=== PATIENT | female | born 1960 | race Hispanic/Latino ===

== ENCOUNTER 2017-02-23 16:51 | Emergency (ER) | payer MEDICAID ==
[2017-02-23 17:38] VITALS: RESP 18
--- NOTE | 2017-02-23 18:16 | C.PDOC ---
History Of Present Illness A 56 year old female presents to the emergency room with complaints of a sore throat and cough for the last 3 days. Notes she vomited 3 days ago, but none since. No SOB, chest pain. Patient denies any fever, dizziness, abdominal pain, or any other complaints. Time Seen by Provider: 02/23/17 17:39 Chief Complaint (Nursing): ENT Problem History Per: Patient History/Exam Limitations: no limitations Onset/Duration Of Symptoms: Days (3) Current Symptoms Are (Timing): Still Present Severity: Mild Recent travel outside of the [place]: No Past Medical History Reviewed: Historical Data, Nursing Documentation, Vital Signs Vital Signs: Last Vital Signs Temp 97.9 F 02/23/17 19:22 Pulse 66 02/23/17 19:22 Resp 18 02/23/17 19:22 BP 117/84 02/23/17 19:22 Pulse Ox 95 02/23/17 20:39 - Medical History PMH: Anxiety, Bipolar Disorder, Depression, HTN Denies: Chronic Kidney Disease - [facility] Procedures REMOV INTRALUM EAR FB (03/08/13) Family History: States: Unknown Family Hx - Social History Hx Tobacco Use: No Hx Alcohol Use: No Hx Substance Use: No - Immunization History Hx Tetanus Toxoid Vaccination: No Hx Influenza Vaccination: No Hx Pneumococcal Vaccination: No Review Of Systems Except As Marked, All Systems Reviewed And Found Negative. Constitutional: Negative for: Fever, Chills ENT: Positive for: Throat Pain (Sore throat) Respiratory: Positive for: Cough. Negative for: Shortness of Breath Gastrointestinal: Negative for: Nausea, Vomiting, Abdominal Pain, Diarrhea Neurological: Negative for: Headache, Dizziness Physical Exam - Physical Exam Appears: Non-toxic, No Acute Distress Skin: Normal Color, Warm, Dry, No Rash Head: Atraumatic, Normacephalic Eye(s): bilateral: Normal Inspection, PERRL, EOMI Ear(s): Bilateral: Normal Nose: Normal, No Discharge Oral Mucosa: Moist Throat: Normal, No Erythema, No Exudate Neck: Normal ROM, No Midline Cervical Tenderness, No Paracervical Tenderness, Supple Lymphatic: Normal Exam, No Adenopathy Chest: Symmetrical Cardiovascular: Rhythm Regular Respiratory: Normal Breath Sounds, No Rales, No Rhonchi, No Wheezing Back: No CVA Tenderness, No Vertebral Tenderness Extremity: Normal ROM, No Tenderness Neurological/Psych: Oriented x3, Normal Speech ED Course And Treatment O2 Sat by Pulse Oximetry: 95 - Radiology CXR: Interpreted by Me, Viewed By Me CXR Interpretation: Yes: No Acute Disease Progress Note: CXR was negative. Patient was given prescription for Motrin and mouth wash. Patient is in no acute distress, afebrile, and denies any pain, sensory changes, headaches, or dizziness. Discussed symptomatic treatment. Patient feels comfortable being discharged home. Instructed to follow up with PMD within 1-2 days. Disposition - Disposition Disposition: HOME/ ROUTINE Disposition Time: 18:54 Condition: STABLE Additional Instructions: Follow up with your primary medical doctor or clinic in 2-5 days for further evaluation. Take medications as prescribed. Return to the emergency department at any time if symptoms persist or worsen. Prescriptions: Ibuprofen [Motrin] 400 mg PO Q6 PRN #20 tab PRN Reason: Fever Mag&Al/Simet/Diphen/Lido [First Magic Mouthwash] 5 ml MM Q6 #1 kit Instructions: Upper Respiratory Infection (ED) - Clinical Impression Clinical Impression: URI (upper respiratory infection) - Scribe Statement The provider has reviewed the documentation as recorded by the Scribe Vincent Hernandez All medical record entries made by the Scribe were at my direction and personally dictated by me. I have reviewed the chart and agree that the record accurately reflects my personal performance of the history, physical exam, medical decision making, and the department course for this patient. I have also personally directed, reviewed, and agree with the discharge instructions and disposition.
[2017-02-23 19:23] VITALS: BP 117/84; PULSE 66; TEMP 97.9
[2017-02-23 20:37] VITALS: O2SAT 95
--- NOTE | 2017-02-24 08:46 | RAD ---
HISTORY: cough COMPARISON: No prior. TECHNIQUE: Chest PA and lateral FINDINGS: LUNGS: No active pulmonary disease. Bibasilar breast and nipple shadows. PLEURA: No significant pleural effusion identified. No pneumothorax apparent. CARDIOVASCULAR: Normal. OSSEOUS STRUCTURES: No significant abnormalities. VISUALIZED UPPER ABDOMEN: Normal. OTHER FINDINGS: None. IMPRESSION: No active disease.
== END 2017-02-23 19:34 | disposition home or self-care (01) ==
LOC: C.ER 16:51
DX: J06.9 Acute upper respiratory infection, unspecified (principal)

== ENCOUNTER 2017-03-11 17:23 | Emergency (ER) | payer MEDICAID ==
[2017-03-11 17:32] VITALS: RESP 18
[2017-03-11 19:01] LABS: BASO % 0.4 % (0.0-2.0); EOS # 0.1 K/uL (0.0-0.7); HEMATOCRIT 37.2 % (34.0-47.0); LYMPH # 1.7 K/uL (1.0-4.3); LYMPH % 24.1 % (20.0-40.0); MEAN CELL VOLUME 89.9 fL (81.0-99.0); MEAN CORPUSCULAR HEMOGLOBIN 28.9 pg (27.0-31.0); MEAN CORPUSCULAR HGB CONC 32.1 g/dL (33.0-37.0); MEAN PLATELET VOLUME 9.2 fL (7.2-11.7); MONO # 0.6 K/uL (0.0-0.8); MONO % 8.2 % (0.0-10.0); RED CELL DISTRIBUTION WIDTH 13.9 % (11.5-14.5); WHITE BLOOD COUNT 6.9 K/uL (4.8-10.8)
[2017-03-11 19:06] LABS: CHLORIDE 99 mmol/L (98-107); POTASSIUM 3.1 mmol/L (3.6-5.2); SODIUM 141 mmol/L (132-148)
[2017-03-11 19:08] LABS: BILIRUBIN,TOTAL 0.6 mg/dL (0.2-1.3); GFR AFRICAN-AMERICAN > 60
[2017-03-11 19:09] LABS: ALB/GLOB RATIO 1.3 (1.0-2.1); ALKALINE PHOSPHATASE 88 U/L (38-126); ALT/SGPT 30 U/L (9-52); AST/SGOT 36 U/L (14-36); BLOOD UREA NITROGEN 17 mg/dL (7-17); CARBON DIOXIDE 32 mmol/L (22-30); GLUCOSE,RANDOM 88 mg/dL (65-105); TOTAL PROTEIN 7.3 g/dL (6.3-8.3)
[2017-03-11 19:10] LABS: CALCIUM 9.1 mg/dl (8.6-10.4)
--- NOTE | 2017-03-11 19:22 | C.PDOC ---
History Of Present Illness 56 y/o female presents to the ED with complains of area of bruising over left thigh the past 2-3 days. Pt describes the area as "mildly tender. " Pt denies trauma, recent travel or history of anticoagulopathy. Denies fever. Time Seen by Provider: 03/11/17 17:48 Chief Complaint (Nursing): Abnormal Skin Integrity History Per: Patient History/Exam Limitations: no limitations Onset/Duration Of Symptoms: Days Current Symptoms Are (Timing): Still Present Severity: Mild Recent travel outside of the [place]: No Past Medical History Reviewed: Historical Data, Nursing Documentation, Vital Signs Vital Signs: Last Vital Signs Temp 982 F H 03/11/17 19:54 Pulse 68 03/11/17 19:54 Resp 18 03/11/17 19:54 BP 107/65 03/11/17 19:54 Pulse Ox 98 03/11/17 19:54 - Medical History PMH: Anxiety, Bipolar Disorder, Depression, HTN - [facility] Procedures REMOV INTRALUM EAR FB (03/08/13) Family History: States: Unknown Family Hx - Social History Hx Tobacco Use: No Hx Alcohol Use: No Hx Substance Use: No - Immunization History Hx Tetanus Toxoid Vaccination: No Hx Influenza Vaccination: No Hx Pneumococcal Vaccination: No Review Of Systems Except As Marked, All Systems Reviewed And Found Negative. Constitutional: Negative for: Fever Skin: Positive for: Bruising (left thigh) Physical Exam - Physical Exam Appears: Non-toxic, No Acute Distress Skin: Warm, Dry, Ecchymosis (10x10 cm area to proximal medial left thigh; nontender, no swelling), Other (No petechiae) Head: Atraumatic, Normacephalic Eye(s): bilateral: Normal Inspection, PERRL, EOMI Ear(s): Bilateral: Normal Nose: Normal Oral Mucosa: Moist, Other (no petechiae or lesions) Throat: Normal, No Erythema Neck: Normal, Normal ROM, Supple Chest: Symmetrical Cardiovascular: Rhythm Regular, No Friction Rub, No Murmur Respiratory: Normal Breath Sounds, No Rales, No Rhonchi, No Wheezing Gastrointestinal/Abdominal: Normal Exam, Soft, No Tenderness Extremity: Normal ROM, No Tenderness, No Swelling Extremity: Bilateral: Atraumatic Pulses: Left Dorsalis Pedis: Normal, Right Dorsalis Pedis: Normal Neurological/Psych: Oriented x3, Normal Speech, Normal Motor, Normal Sensation Gait: Steady ED Course And Treatment - Laboratory Results Result Diagrams: 03/11/17 18:38 03/11/17 18:38 O2 Sat by Pulse Oximetry: 100 (room air) Pulse Ox Interpretation: Normal Medical Decision Making Medical Decision Making: labs are normal. DVT was ruled out as D-dimer is negative. Disposition - Disposition Referrals: Benji Rico MD [Medical Doctor] - Disposition: HOME/ ROUTINE Disposition Time: 19:30 Condition: GOOD Additional Instructions: Follow up with the medical doctor within 1-2 days. Return if worsened. Prescriptions: Naproxen [Naprosyn] 500 mg PO BID #20 tab Instructions: Contusion in Adults (ED) - Clinical Impression Clinical Impression: Ecchymosis - PA / ARCHITECTURAL ASSOCIATE / Resident Statement MD/DO has reviewed & agrees with the documentation as recorded. - Scribe Statement The provider has reviewed the documentation as recorded by the Scribmorteza Bliss All medical record entries made by the Scribe were at my direction and personally dictated by me. I have reviewed the chart and agree that the record accurately reflects my personal performance of the history, physical exam, medical decision making, and the department course for this patient. I have also personally directed, reviewed, and agree with the discharge instructions and disposition.
[2017-03-11 19:54] VITALS: BP 107/65; PULSE 68; TEMP 982
[2017-03-11 23:31] VITALS: O2SAT 100
== END 2017-03-11 19:59 | disposition home or self-care (01) ==
LOC: C.ER 17:23
DX: S70.12XA Contusion of left thigh, initial encounter (principal); X58.XXXA Exposure to other specified factors, initial encounter; Y93.89 Activity, other specified; Y92.89 Other specified places as the place of occurrence of the external cause

== ENCOUNTER 2017-06-02 12:50 | Emergency (ER) | payer MEDICAID ==
[2017-06-02 13:05] VITALS: BP 116/71; PULSE 71; RESP 18; TEMP 97.9; O2SAT 100
--- NOTE | 2017-06-02 13:48 | C.PDOC ---
History Of Present Illness 56 year old female presents to the ED with complaints of intermittent bilateral hand pain for three weeks, worsen in the right hand. 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 She denies fever, swelling , or numbness. Time Seen by Provider: 06/02/17 13:18 Chief Complaint (Nursing): Upper Extremity Problem/Injury History Per: Patient History/Exam Limitations: no limitations Onset/Duration Of Symptoms: Days (3 weeks ), Intermittent Episodes Current Symptoms Are (Timing): Still Present Quality: "Pain" Exacerbating Factor(s): Movement Recent travel outside of the [place]: No Past Medical History Reviewed: Historical Data, Nursing Documentation, Vital Signs Vital Signs: Last Vital Signs Temp 97.9 F 06/02/17 13:02 Pulse 71 06/02/17 13:02 Resp 18 06/02/17 13:02 BP 116/71 06/02/17 13:02 Pulse Ox 100 06/02/17 14:06 - Medical History PMH: Anxiety, Bipolar Disorder, Depression, HTN - [facility] Procedures REMOV INTRALUM EAR FB (03/08/13) Family History: States: Other Other Family History: Non-contributory - Social History Hx Tobacco Use: No Hx Alcohol Use: No Hx Substance Use: No - Immunization History Hx Tetanus Toxoid Vaccination: No Hx Influenza Vaccination: No Hx Pneumococcal Vaccination: No Review Of Systems Constitutional: Negative for: Fever, Chills Cardiovascular: Negative for: Chest Pain Respiratory: Negative for: Shortness of Breath Gastrointestinal: Negative for: Nausea, Vomiting Musculoskeletal: Positive for: Hand Pain (bilateral hand pain ) Neurological: Negative for: Weakness, Numbness Physical Exam - Physical Exam Appears: Non-toxic, No Acute Distress Skin: Warm, Dry Head: Atraumatic Eye(s): bilateral: Normal Inspection, EOMI Chest: Symmetrical, No Deformity Cardiovascular: Rhythm Regular Extremity: Normal ROM, No Tenderness, No Pedal Edema, No Calf Tenderness, Capillary Refill (good capillary refill, less than two seconds ), No Deformity, No Swelling Neurological/Psych: Oriented x3, Normal Speech, Normal Cognition, Normal Motor, Normal Sensation ED Course And Treatment O2 Sat by Pulse Oximetry: 100 (room air ) - Other Rad Bilateral Hand X-Ray X-Ray: Viewed By Me, Read By Radiologist Interpretation: IMPRESSION: Neutral right ulnar variance; minimal positive left ulnar variance. A fracture or dislocation. No erosion. Minimal arthrosis Progress Note: Left and right hand X-Rays were taken. Patient was given Toradol. Medical Decision Making Medical Decision Making: xr juana hands- no acute fracture Disposition - Disposition Referrals: [facility] [Outside] Disposition: HOME/ ROUTINE Disposition Time: 14:06 Condition: GOOD Additional Instructions: Please follow up with a primary doctor. Return to the ER for any worsening symptoms or for any other concerns. Prescriptions: Naproxen [Naprosyn] 500 mg PO Q12H PRN #10 tablet PRN Reason: Pain, Moderate (4-7) Forms: [facility] ([place]i), General Discharge Instructions - Clinical Impression Clinical Impression: Bilateral hand pain - Scribe Statement The provider has reviewed the documentation as recorded by the Scribe Sammi Alvarado All medical record entries made by the Scribe were at my direction and personally dictated by me. I have reviewed the chart and agree that the record accurately reflects my personal performance of the history, physical exam, medical decision making, and the department course for this patient. I have also personally directed, reviewed, and agree with the discharge instructions and disposition.
--- NOTE | 2017-06-02 14:52 | RAD ---
PROCEDURE: Bilateral hand radiographs. HISTORY: pain in both hands COMPARISON: None. FINDINGS: BONES: Right Hand: Minimal midcarpal row radial sided osteoarthritic changes. Left Hand: Minimal mid carpal row radial sided and radial carpal osteoarthritic changes. JOINTS: Right Hand: Normal. Left Hand: 1 mm ossification ossification ulnar carpal joint level SOFT TISSUES: Right Hand: Normal. Left Hand: Normal. OTHER FINDINGS: No erosions seen IMPRESSION: Neutral right ulnar variance; minimal positive left ulnar variance A fracture or dislocation. No erosion Minimal arthrosis
== END 2017-06-02 14:10 | disposition home or self-care (01) ==
LOC: C.ER 12:50
DX: M79.642 Pain in left hand (principal); M79.641 Pain in right hand
CPT/HCPCS: 73130; 96372; 99283; J1885

== ENCOUNTER 2018-01-06 11:01 | Emergency (ER) | payer MEDICAID ==
[2018-01-06 11:30] VITALS: BP 124/73; PULSE 90; RESP 20; TEMP 97.8; O2SAT 100
--- NOTE | 2018-01-06 12:33 | RAD ---
PROCEDURE: Radiographs of the Right Shoulder HISTORY: pain COMPARISON: No prior. FINDINGS: BONES: No acute fracture. JOINTS: Unremarkable. SOFT TISSUES: Normal. OTHER FINDINGS: None. IMPRESSION: No demonstrated fracture or dislocation.
--- NOTE | 2018-01-06 12:37 | C.PDOC ---
History Of Present Illness 57 year old female presents to the ED c/o right shoulder pain for the past month. Patient notes the pain mainly occurs with certain movements of her arm and when its hyperextended. Patient is right hand dominant. 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 Patient denies trauma, injury, fall, pain radiation, CP, SOB, changes in sensation. Time Seen by Provider: 01/06/18 11:57 Chief Complaint (Nursing): Upper Extremity Problem/Injury History Per: Patient History/Exam Limitations: no limitations Onset/Duration Of Symptoms: Days Current Symptoms Are (Timing): Still Present Quality: "Pain" Exacerbating Factor(s): Movement Recent travel outside of the [place]: No Additional History Per: Patient Past Medical History Reviewed: Historical Data, Nursing Documentation, Vital Signs Vital Signs: Last Vital Signs Temp 97.8 F 01/06/18 11:26 Pulse 90 01/06/18 11:26 Resp 20 01/06/18 11:26 BP 124/73 01/06/18 11:26 Pulse Ox 100 01/06/18 13:43 - Medical History PMH: Anxiety, Bipolar Disorder, Depression, HTN Denies: Chronic Kidney Disease Surgical History: No Surg Hx - [facility] Procedures REMOV INTRALUM EAR FB (03/08/13) Family History: States: Unknown Family Hx - Social History Hx Tobacco Use: No Hx Alcohol Use: No Hx Substance Use: No - Immunization History Hx Tetanus Toxoid Vaccination: No Hx Influenza Vaccination: No Hx Pneumococcal Vaccination: No Review Of Systems Constitutional: Negative for: Fever, Chills Cardiovascular: Negative for: Chest Pain Respiratory: Negative for: Shortness of Breath Musculoskeletal: Positive for: Shoulder Pain (right) Skin: Negative for: Rash Neurological: Negative for: Weakness, Numbness Physical Exam - Physical Exam Appears: Non-toxic, No Acute Distress Skin: Normal Color, Warm, Dry Head: Atraumatic, Normacephalic Eye(s): bilateral: Normal Inspection, EOMI Nose: Normal, No Discharge Oral Mucosa: Moist Neck: Normal ROM, Supple Chest: Symmetrical Respiratory: No Accessory Muscle Use Extremity: Normal ROM (Pain elicited with abduction at 180 degrees), No Tenderness, Capillary Refill (< 2 seconds), No Swelling Pulses: Left Radial: Normal, Right Radial: Normal Neurological/Psych: Oriented x3, Normal Motor, Normal Sensation Gait: Steady ED Course And Treatment O2 Sat by Pulse Oximetry: 100 (On RA) Pulse Ox Interpretation: Normal - Other Rad Right shoulder X-Ray X-Ray: Viewed By Me, Read By Radiologist Interpretation: PROCEDURE: Radiographs of the Right Shoulder. HISTORY: pain. COMPARISON: No prior. FINDINGS: BONES: No acute fracture. JOINTS: Unremarkable. SOFT TISSUES: Normal. OTHER FINDINGS: None. IMPRESSION: No demonstrated fracture or dislocation. Progress Note: Plan: - Right shoulder X-Ray. Pt refused pain medication. On reassessment, patient is resting comfortably, and is in no acute distress. Patient was instructed to follow up with physician/clinic in 1-2 days for further evaluation. Disposition - Disposition Referrals: Terrell Hopper III, MD [Staff Provider] - Disposition: HOME/ ROUTINE Disposition Time: 12:35 Condition: STABLE Additional Instructions: Follow up with your primary medical doctor or clinic in 2-5 days for further evaluation. Take medications as prescribed. Return to the emergency department at any time if symptoms persist or worsen. Instructions: Shoulder Sprain (DC) Forms: [facility] (Swazi) - Clinical Impression Clinical Impression: Shoulder strain - PA / PAROLE OFFICER / Resident Statement MD/DO has reviewed & agrees with the documentation as recorded. - Scribe Statement The provider has reviewed the documentation as recorded by the Scribe Willie Leary All medical record entries made by the Scribe were at my direction and personally dictated by me. I have reviewed the chart and agree that the record accurately reflects my personal performance of the history, physical exam, medical decision making, and the department course for this patient. I have also personally directed, reviewed, and agree with the discharge instructions and disposition.
== END 2018-01-06 12:40 | disposition home or self-care (01) ==
LOC: C.ER 11:01
DX: S46.911A Strain of unspecified muscle, fascia and tendon at shoulder and upper arm level, right arm, initial encounter (principal); X50.0XXA Overexertion from strenuous movement or load, initial encounter; Y92.89 Other specified places as the place of occurrence of the external cause

== ENCOUNTER 2019-01-07 10:55 | Emergency (ER) | payer MEDICAID, OTHER ==
[2019-01-07 11:03] VITALS: BP 156/88; PULSE 78; RESP 17; TEMP 98; O2SAT 99
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
== END 2019-01-07 13:17 | disposition home or self-care (01) ==
LOC: C.ER 10:55
DX: M54.6 Pain in thoracic spine (principal)

== ENCOUNTER 2019-01-11 20:05 | Emergency (ER) | payer SELFPAY ==
[2019-01-11 20:17] VITALS: BP 160/90; PULSE 72; RESP 18; TEMP 98.1; O2SAT 99
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
--- NOTE | 2019-01-12 11:12 | RAD ---
PROCEDURE: Radiographs of the Right Shoulder, three views HISTORY: pain COMPARISON: None available FINDINGS: BONES: No acute displaced fracture. The distal clavicle and underlying ribs appear intact. JOINTS: No acute dislocation. SOFT TISSUES: Soft tissues appear unremarkable. No evidence of radiopaque foreign body. IMPRESSION: No acute displaced fracture or dislocation evident. If symptoms persist or if there is continued clinical concern, x-ray follow-up in 7-10 days should be considered.
--- NOTE | 2019-01-12 11:12 | RAD ---
PROCEDURE: Radiographs of the Left Shoulder, three views HISTORY: pain COMPARISON: None available FINDINGS: BONES: No acute displaced fracture. The distal clavicle and underlying ribs appear intact. JOINTS: No acute dislocation. Glenohumeral humeral joint space narrowing. SOFT TISSUES: Soft tissues appear unremarkable. No evidence of radiopaque foreign body. Dense atherosclerotic calcification of the aortic knob. IMPRESSION: No acute displaced fracture or dislocation evident. If symptoms persist or if there is continued clinical concern, x-ray follow-up in 7-10 days should be considered.
== END 2019-01-11 21:25 | disposition home or self-care (01) ==
LOC: C.ER 20:05
DX: S46.912A Strain of unspecified muscle, fascia and tendon at shoulder and upper arm level, left arm, initial encounter (principal); S23.3XXA Sprain of ligaments of thoracic spine, initial encounter; Y04.2XXA Assault by strike against or bumped into by another person, initial encounter; Y92.89 Other specified places as the place of occurrence of the external cause; Y99.0 Civilian activity done for income or pay